=== PATIENT | male | born 1995 | race American Indian/Alaskan Native ===

== ENCOUNTER 2017-03-25 17:31 | Emergency (ER) | payer BC ==
[2017-03-25 18:38] LABS: Basophils % (Auto) 0.2 % (0.0-1.8); Eosinophils % (Auto) 0.5 % (0.0-4.3); Hematocrit 46.7 % (35.5-45.6); Hemoglobin 15.4 gm/dl (11.8-15.2); Mean Corpuscular HGB Conc 33 % (32-34); Mean Corpuscular Hemoglobin 27 pg (28-32); Mean Corpuscular Volume 83 fl (84-94); Platelet Count 184 K/mm3 (140-440); Red Blood Count 5.63 M/mm3 (3.65-5.03); Red Cell Distribution Width 14.3 % (13.2-15.2); White Blood Count 11.2 K/mm3 (4.5-11.0)
--- NOTE | 2017-03-25 18:40 | Emergency Department Report ---
ED Chest Pain HPI - General Chief Complaint: Chest Pain Stated Complaint: CHEST PAIN, VOMITTING Time Seen by Provider: 03/25/17 18:28 Source: patient Mode of arrival: Ambulatory Limitations: No Limitations - History of Present Illness MD Complaint: chest pain -: Gradual, days(s) (THREE) Onset: during exertion Pain Location: left chest Severity scale (0 -10): 6 Quality: sharp Worsens With: inspiration re: denies: nausea, vomting - Related Data Previous Rx's Medication Instructions Recorded Last Taken Type Acetaminophen/Codeine [Tylenol #3] 1 tab PO Q6H PRN #20 tab 07/12/15 Unknown Rx Fluticasone [Flonase] 1 spray NS QDAY #1 bottle 07/12/15 Unknown Rx Ibuprofen [Motrin] 600 mg PO Q8H PRN #40 tablet 07/12/15 Unknown Rx Loratadine [Claritin] 10 mg PO DAILY #30 tablet 07/12/15 Unknown Rx Promethazine [Phenergan TAB] 25 mg PO Q6HR PRN #20 tab 07/12/15 Unknown Rx Sulfamethoxazole/Trimethoprim 1 each PO BID #20 tablet 07/12/15 Unknown Rx [Bactrim DS TAB] Ketorolac [Toradol] 10 mg PO Q6H PRN #20 tablet 03/25/17 Unknown Rx Allergies Allergy/AdvReac Type Severity Reaction Status Date / Time shellfish derived Allergy Angioedema Verified 03/25/17 17:42 Heart Score - HEART Score History: Slightly suspicious EKG: Non-specific Age: < 45 Risk factors: 1-2 risk factors Troponin: < normal limit HEART Score: 2 ED Review of Systems ROS: Stated complaint: CHEST PAIN, VOMITTING Other details as noted in HPI Comment: All other systems reviewed and negative Constitutional: denies: chills, fever Respiratory: no symptoms reported, cough, shortness of breath. denies: orthopnea, SOB with exertion Cardiovascular: chest pain. denies: palpitations Endocrine: no symptoms reported Gastrointestinal: denies: abdominal pain, vomiting Neurological: denies: headache ED Past Medical Hx - Past Medical History Previous Medical History?: No - Surgical History Past Surgical History?: Yes Hx Appendectomy: Yes (2009) - Social History Smoking Status: Never Smoker Substance Use Type: None - Medications Home Medications: Home Medications Medication Instructions Recorded Confirmed Last Taken Type Acetaminophen/Codeine [Tylenol #3] 1 tab PO Q6H PRN #20 tab 07/12/15 Unknown Rx Fluticasone [Flonase] 1 spray NS QDAY #1 bottle 07/12/15 Unknown Rx Ibuprofen [Motrin] 600 mg PO Q8H PRN #40 tablet 07/12/15 Unknown Rx Loratadine [Claritin] 10 mg PO DAILY #30 tablet 07/12/15 Unknown Rx Promethazine [Phenergan TAB] 25 mg PO Q6HR PRN #20 tab 07/12/15 Unknown Rx Sulfamethoxazole/Trimethoprim 1 each PO BID #20 tablet 07/12/15 Unknown Rx [Bactrim DS TAB] Ketorolac [Toradol] 10 mg PO Q6H PRN #20 tablet 03/25/17 Unknown Rx ED Physical Exam - General Limitations: No Limitations General appearance: alert - Head Head exam: Present: atraumatic - Eye Eye exam: Present: normal appearance - ENT ENT exam: Present: normal exam - Neck Neck exam: Present: normal inspection - Respiratory Respiratory exam: Present: normal lung sounds bilaterally. Absent: respiratory distress, wheezes, rales, rhonchi - Cardiovascular Cardiovascular Exam: Present: regular rate, bradycardia, normal heart sounds. Absent: systolic murmur, diastolic murmur - GI/Abdominal GI/Abdominal exam: Present: soft. Absent: distended, tenderness - Neurological Exam Neurological exam: Present: alert, oriented X3, CN II-XII intact - Psychiatric Psychiatric exam: Present: normal affect, normal mood ED Course Vital Signs 03/25/17 03/25/17 03/25/17 17:36 17:53 18:00 Temperature 98.5 F Pulse Rate 53 L 72 Respiratory 18 23 Rate Blood Pressure 135/78 133/86 Blood Pressure [Right] O2 Sat by Pulse 100 100 Oximetry 03/25/17 03/25/17 03/25/17 18:08 18:15 18:31 Temperature Pulse Rate 75 60 73 Respiratory 18 21 20 Rate Blood Pressure 133/86 133/86 Blood Pressure 134/70 [Right] O2 Sat by Pulse 99 98 99 Oximetry 03/25/17 03/25/17 03/25/17 18:45 19:01 19:15 Temperature Pulse Rate 67 64 79 Respiratory 18 13 17 Rate Blood Pressure 133/86 122/63 122/63 Blood Pressure [Right] O2 Sat by Pulse 98 99 98 Oximetry ED Medical Decision Making - Lab Data Result diagrams: 03/25/17 17:53 03/25/17 17:53 Critical care attestation.: If time is entered above; I have spent that time in minutes in the direct care of this critically ill patient, excluding procedure time. ED Disposition Clinical Impression: Chest pain, atypical Disposition: DC-01 TO HOME OR SELFCARE Is pt being admited?: No Does the pt Need Aspirin: No (atypical chest pain) Condition: Stable Instructions: Chest Pain (ED) Prescriptions: Ketorolac [Toradol] 10 mg PO Q6H PRN #20 tablet PRN Reason: Pain
[2017-03-25 18:48] LABS: Anion Gap 19 mmol/L; BUN/Creatinine Ratio 13.63; Blood Urea Nitrogen 15 mg/dL (9-20); Calcium 9.9 mg/dL (8.4-10.2); Carbon Dioxide 28 mmol/L (22-30); Chloride 96.5 mmol/L (98-107); Glucose 77 mg/dL (75-100); Potassium 4.7 mmol/L (3.6-5.0); Sodium 139 mmol/L (137-145)
--- NOTE | 2017-03-25 19:36 | XRay Report ---
FINAL REPORT EXAM: XR CHEST 1V AP HISTORY: FEVER,COUGH, HIV TECHNIQUE: AP portable view of the chest PRIORS: None. FINDINGS: Lines, tubes, and devices: N/A Lungs and pleura: Trachea is normal in position. Lungs are clear of infiltrate, pleural effusion, vascular congestion, or pneumothorax. Cardiomediastinal silhouette: Cardiac and mediastinal silhouettes are unremarkable. Other: Bony structures are intact. IMPRESSION: No acute cardiopulmonary process seen.
[2017-03-25 19:40] VITALS: BP 122/63
[2017-03-25 19:58] LABS: Urine Drugs of Abuse Note Disclamer
== END 2017-03-25 20:23 | disposition home or self-care (01) ==
LOC: ED 17:31
DX: R07.89 Other chest pain (principal); Z91.013 Allergy to seafood
CPT/HCPCS: 36415; 71010; 80048; 80307; 83880; 84484; 85025; 85379; 93005; 93010